=== PATIENT | male | born 1975 | race African-American/Black ===

== ENCOUNTER 2017-02-10 18:39 | Emergency (ER) | payer SELFPAY ==
[~2017-02-10] VITALS: Ht 190.5 cm; Wt 155.0 kg
[2017-02-10 18:49] VITALS: BP 149/101
[2017-02-10] MEDS ORDERED: SODIUM CHLORIDE 0.9% 1,000 ML IV ONE (19:04)
[2017-02-10 19:35] LABS: BASOPHILS % 0.8 % (0.0-2.0); EOSINOPHILS % 1.2 % (0.0-5.0); HEMATOCRIT. 42.5 % (42.0-52.0); HEMOGLOBIN. 13.9 g/dL (14.0-18.0); LYMPHOCYTES % 28.2 % (20.0-50.0); MEAN CORPUSCULAR HEMOGLOBIN 27.1 pg (28.0-32.0); MEAN CORPUSCULAR HGB CONC 32.7 g/dL (31.0-37.0); MEAN CORPUSCULAR VOLUME 82.9 fL (80.0-94.0); MEAN PLATELET VOLUME 9.7 fl (7.4-10.4); MONOCYTES % 7.3 % (2.0-8.0); NEUTROPHILS % 62.5 % (40.0-76.0); PLATELET 136 x1000/uL (130-400); RED BLOOD CELL COUNT 5.13 mill/uL (4.7-6.1); RED CELL DISTRIBUTION WIDTH 13.7 % (11.6-14.6); WHITE BLOOD COUNT 7.3 x1000/uL (4.5-11.0)
[2017-02-10 19:38] LABS: CHLORIDE 95 mEq/L (98-107); INDEX HEMOLYSI 1 (1-3); INDEX ICTERIC 1 (1-4); INDEX LIPEMIC 1 (1-3)
[2017-02-10 19:41] LABS: ALBUMIN 3.5 g/dL (3.4-5.0); ANION GAP 15; CALCIUM 8.6 mg/dL (8.5-10.1); CARBON DIOXIDE 28 mEq/L (21-32); UREA NITROGEN BLOOD 14 mg/dL (7-21)
[2017-02-10 19:46] LABS: ALANINE AMINOTRANSFERASE 34 IU/L (13-61); BETA HYDROXYBUTYRATE 0.1 mMol/L (0.0-0.3); eGFR > 60 mL/min (>60)
[2017-02-10] MEDS ORDERED: INSULIN REGULAR (HUMULIN R) 300UNITS/3ML IV ONE (20:15)
[2017-02-10] MEDS ORDERED: FLUCONAZOLE 200MG TABLET PO ONE (20:15)
== END 2017-02-10 20:25 | disposition left against medical advice (07) ==
LOC: ER 18:39
DX: R42 Dizziness and giddiness (principal)
CPT/HCPCS: 36415; 80053; 82010; 85025; 99284; 99285; J7030

== ENCOUNTER 2017-02-22 17:35 | Emergency (ER) | payer SELFPAY | END 2017-02-23 03:19 | disposition left against medical advice (07) | LOC: ER 17:37 | DX: R73.9 Hyperglycemia, unspecified (principal); Z53.21 Procedure and treatment not carried out due to patient leaving prior to being seen by health care provider ==